=== PATIENT | female | born 1940 | race Caucasian/White ===

== ENCOUNTER 2022-04-01 05:02 | Observation (INO) ==
--- NOTE | 2022-02-21 15:52 | PAT Medication Instructions ---
Medication Instructions Date of Service February 21, 2022 Home Medications amlodipine 5 mg tablet 5 mg PO QAM aspirin 81 mg capsule 81 mg PO QAM atenolol 25 mg tablet 25 mg PO QPM benazepril 40 mg tablet 40 mg PO QAM cholecalciferol (vitamin D3) 50 mcg (2,000 unit) capsule (Vitamin D3) 50 mcg PO QPM citalopram 20 mg tablet 30 mg PO QAM ibuprofen 200 mg tablet 600 mg PO Q8H PRN levothyroxine 75 mcg tablet 75 mcg PO QAM omeprazole 20 mg tablet,delayed release 20 mg PO QAM oxybutynin chloride 10 mg tablet,extended release 24 hr (Ditropan XL) 10 mg PO QAM rosuvastatin 10 mg tablet 10 mg PO QPM ASK your surgeon for instructions ibuprofen 200 mg tablet 600 mg PO Q8H PRN DO NOT take the morning of surgery benazepril 40 mg tablet 40 mg PO QAM oxybutynin chloride 10 mg tablet,extended release 24 hr (Ditropan XL) 10 mg PO QAM Take morning of surgery With a small sip of water, OTHERWISE NOTHING TO EAT OR DRINK AFTER MIDNIGHT: amlodipine 5 mg tablet 5 mg PO QAM aspirin 81 mg capsule 81 mg PO QAM (unless surgeon directed otherwise) citalopram 20 mg tablet 30 mg PO QAM levothyroxine 75 mcg tablet 75 mcg PO QAM omeprazole 20 mg tablet,delayed release 20 mg PO QAM Take evening before surgery atenolol 25 mg tablet 25 mg PO QPM cholecalciferol (vitamin D3) 50 mcg (2,000 unit) capsule (Vitamin D3) 50 mcg PO QPM rosuvastatin 10 mg tablet 10 mg PO QPM Other Notes If you have any questions please call us at [phone] or [phone] or [phone] or [phone]
--- NOTE | 2022-02-27 15:05 | Anesthesiology Consultation ---
Date of Service February 27, 2022 Assessment & Plan (1) Encounter for pre-operative examination: Chart Review Chart Review: Acceptable Risk for Surgery (pending cardio clearance, PCP clearance and lumbar x ray (if records available) ) and Patient NOT seen in Pre Admission Testing -Awaiting cardio clearance (03/01/22) (please fax EKG for cardio review) - Awaiting PCP clearance 03/22/22 -Please fax [facility] for lumbar x ray from 01/2022 per patient request - Hx of significant lumbar spine arthritis and hardware to spine- 2010 right TKA done under [facility] per records (fluid bolus NOT ordered for DOS- will leave to anesthesiologist discretion pending on plan of anesthesia) -Pt is NOT a Same Day Joint candidate secondary to age Per PAT appt on 02/27/22, patient denies any recent travel or large group activities. Pt is vaccinated for Covid. Will leave to surgeon's discretion if preop Covid testing needed. Educated on importance of using Covid precautions one week prior to surgery Teaching & Discussion Pre-Anesthesia Teaching/Discussion Notes: Instructed NPO after midnight before surgery,except medications with 15 cc of water. Medication instructions provided according to the PAT guidelines. History Surgery Operation Date: 04/01/22 07:30 Proposed Procedures p Left Total Knee Arthroplasty - Ariel Acevedo MD Height/Weight Height: 5 ft 5 in Weight: 114.6 kg Allergies Allergy/AdvReac Type Severity Reaction Status Date / Time celecoxib Allergy Intermediate EDEMA Verified 02/21/22 13:08 chlorhexidine Allergy Intermediate Hives Verified 02/21/22 13:29 meloxicam Allergy Intermediate EDEMA Verified 02/21/22 13:08 nitroglycerin Allergy Unknown UNSURE OF Verified 02/21/22 13:08 REACTION promethazine Allergy Unknown UNSURE OF Verified 02/21/22 13:08 REACTION red dye Allergy Unknown UNSURE OF Verified 02/21/22 13:08 REACTION Medications Home Medications Medication Instructions Recorded Confirmed Last Taken amlodipine 5 mg tablet 5 mg PO QAM 02/21/22 02/21/22 Unknown aspirin 81 mg capsule 81 mg PO QAM 02/21/22 02/21/22 Unknown atenolol 25 mg tablet 25 mg PO QPM 02/21/22 02/21/22 Unknown benazepril 40 mg tablet 40 mg PO QAM 02/21/22 02/21/22 Unknown cholecalciferol (vitamin D3) 50 50 mcg PO QPM 02/21/22 02/21/22 Unknown mcg (2,000 unit) capsule (Vitamin D3) citalopram 20 mg tablet 30 mg PO QAM 02/21/22 02/21/22 Unknown ibuprofen 200 mg tablet 600 mg PO Q8H PRN Pain 02/21/22 02/21/22 Unknown levothyroxine 75 mcg tablet 75 mcg PO QAM 02/21/22 02/21/22 Unknown omeprazole 20 mg tablet,delayed 20 mg PO QAM 02/21/22 02/21/22 Unknown release oxybutynin chloride 10 mg 10 mg PO QAM 02/21/22 02/21/22 Unknown tablet,extended release 24 hr (Ditropan XL) rosuvastatin 10 mg tablet 10 mg PO QPM 02/21/22 02/21/22 Unknown Past Medical History Medical History Anxiety Arthritis CAD (coronary artery disease) Stent x1 to mLAD (2008) Follows with Dr. Romero Degenerative disc disease GERD (gastroesophageal reflux disease) Well controlled and stable per patient History of COVID-19 10/2021, symptoms resolved Hyperlipidemia Pt denies On statin for preventative measure for CAD per patient Hypertension Hypothyroidism Overactive bladder Exercise / Class Metabolic Activity IV < 2 Limit ADL/Bedbound (usually in wheelchair or scooter - can transfer herself (lives alone); can only ambulate for few steps due to back/leg issues) Past Family History Family History Other No family history of adverse response to anesthesia Past Surgical History Surgical History History of bilateral tubal ligation History of carpal tunnel release RT/LEFT History of cataract surgery RT/LEFT History of cholecystectomy History of colonoscopy History of esophagogastroduodenoscopy (EGD) History of heart artery stent Stent x1 (2008) History of hysterectomy History of lumbar spinal fusion History of repair of rotator cuff RT History of tooth extraction History of total knee replacement RT S/P Botox injection BLADDER S/P cervical spinal fusion Past Anesthesia History No Hx of Anesthesia Complications and No Family Hx of Anesthesia Complications History of PONV No Hx of PONV and No Hx of Motion Sickness Social History Smoking Status: Never smoker Hx Alcohol Use: Yes alcohol intake frequency: holidays/special occasions only substance use type: does not use Review of Systems Patient denies chest pain, shortness of breath, dyspnea on exertion, cough, wheezing, palpitations. No hx of seizures, stroke, apnea/snoring. No hx of blood clots or blood transfusions Physical Exam Vital Signs VITALS BP 114/73 P 63 TEMP 97.8 SP02 96% RESP 16 Constitutional no acute distress ENMT Mouth: no TMJ clicking Thyromental Distance: > or= 3.5 Finger Breadths (3.5) Mallampati Class: I Full dentures on top and bottom Neck + limited neck extension (significant ) Respiratory normal respiratory effort; no respiratory distress Auscultation: lungs clear to auscultation bilaterally; no wheezes Cardiovascular Rate/Rhythm: regular rate and regular rhythm Heart Sounds: no murmur Vessels: no carotid bruit Heart sounds diminished throughout Musculoskeletal Spine: no pain with cervical ROM Extremities: extremities normal to inspection Psychiatric Orientation: alert Lab Results Anesthesia Preop Results Results Anesthesia Widget: WBC 8.05 K/ul (4.8-10.8) 02/27/22 Hgb 14.0 g/dl (12.0-16.0) 02/27/22 Hct 41.8 % (34.1-44.9) 02/27/22 Plt 265 K/uL (130-400) 02/27/22 Na 139 mmol/L (136-145) 02/27/22 K 3.7 mmol/L (3.5-5.1) 02/27/22 Cl 105 mmol/L (98-107) 02/27/22 CO2 28 mmol/L (21-32) 02/27/22 BUN 20 mg/dl (6-23) 02/27/22 Creat 0.87 mg/dl (0.6-1.2) 02/27/22 Glucose Level 120 mg/dl (70-99(Fasting)) H 02/27/22 PT 11.0 Seconds (9.0-12.0) 02/27/22 PTT 26.0 Seconds (21.0-31.0) 02/27/22 INR 1.0 (0.9-1.1) 02/27/22 Blood Type B Positive 02/27/22 Antibody Screen NEGATIVE 02/27/22 Testing Electrocardiogram Date: 02/27/22 SR with 1st degree AVB at 63bpm Minimal voltage criteria for LVH, may be normal variant Nonspecific T wave abnormality When compared to EKG from July- QT has lengthened per cardio Chest X-Ray Date: 02/27/22 Findings: + NAD Echocardiogram Date: 06/28/20 Grossly normal LV size and systolic function. EF 55-60%. Unable to comment on regional wall motion. RV systolic pressure as measured by Doppler is 45.3 mmHg. No significant valvular disease. COVID-19 Risk Screen Screening Information COVID-19 Screen Date: 02/27/22 Exposure 21 Days Family/Household +COVID Last 21 Days: No Exposure 10 Days Any COVID Exposure Last 10 Days: No Symptoms Last 10 Days Experienced COVID Sx Last 10 Days: No + COVID 0-90 Days COVID + in Last 0-90 Days: No Risk Plan COVID Risk Plan: No Risk Identified Patient Education COVID Preop Screening Education Complete: Yes
[2022-04-01] MEDS ORDERED: dexAMETHasone 4 MG TAB PO SCH (06:00)
[2022-04-01] MEDS ORDERED: ceFAZolin 2000MG 2,000 MG/15 ML SYR IV SCH (06:00)
[2022-04-01] MEDS ORDERED: LR 15ML/HR IV SCH (06:00)
[2022-04-01] MEDS ORDERED: FAMOTIDINE 20 MG TAB PO SCH (06:00)
[2022-04-01] MEDS ORDERED: METOCLOPRAMIDE HCL 10 MG TABLET PO SCH (06:00)
[2022-04-01] MEDS ORDERED: TRANEXAMIC ACID 1,000 MG **IV Pre-op IV SCH (06:00)
[2022-04-01] MEDS ORDERED: ROPIVACAINE 0.5% HCL/PF 150 MG, BUPIVACAINE 0.75% MPF 20 ML, EPINEPHrine 30MG/30ML (OR ... INSTIL SCH (06:00)
[2022-04-01] MEDS ORDERED: ACETAMINOPHEN 500 MG TAB PO SCH (06:00)
[2022-04-01] MEDS ORDERED: ROPIVACAINE 0.5% 5 MG/ML 30 ML VIAL ONE (06:33)
[2022-04-01] MEDS ORDERED: BUPIVACAINE 0.5 % 5 MG/1 ML PF 10ML VIAL ONE (06:33)
[2022-04-01] MEDS ORDERED: PROPOFOL IV EMULSION 10 MG/ML 20 ML VIAL IV ONE ×2 (07:01→07:50)
[2022-04-01] MEDS ORDERED: MIDAZOLAM HCL 1 MG/ML 2ML VIAL ONE (07:01)
[2022-04-01] MEDS ORDERED: fentaNYL citrate 100 MCG/2 ML VIAL ONE ×2 (07:01→09:12)
[2022-04-01] MEDS ORDERED: LIDOCAINE 2% MPF LOCAL 5 ML VIAL INFIL ONE (07:01)
[2022-04-01] MEDS ORDERED: ORTHO JOINT ANESTHETIC ONE (07:13)
--- NOTE | 2022-04-01 07:17 | History & Physical Report ---
Date of Service April 01, 2022 Assessment & Plan (1) Osteoarthritis of left knee: Plan: Left total knee replacement. I have explained the risk benefits and alternatives to her and she has consented to proceed. Plan left total knee replacement at [facility] with overnight stay. History of Present Illness Chief Complaint: Left knee pain Primary Care Provider: Alvarado Ann MD Rita is an 81-year-old woman with left knee osteoarthritis. After the failure of conservative treatment we have decided to proceed with a total knee replacement Allergies Allergy/AdvReac Type Severity Reaction Status Date / Time celecoxib Allergy Intermediate EDEMA Verified 04/01/22 05:36 chlorhexidine Allergy Intermediate Hives Verified 04/01/22 05:36 meloxicam Allergy Intermediate EDEMA Verified 04/01/22 05:36 nitroglycerin Allergy Unknown UNSURE OF Verified 04/01/22 05:36 REACTION promethazine Allergy Unknown UNSURE OF Verified 04/01/22 05:36 REACTION red dye Allergy Unknown UNSURE OF Verified 04/01/22 05:36 REACTION Home Medications Medication Instructions Recorded Confirmed Type amlodipine 5 mg tablet (Norvasc) 5 mg PO QAM 02/21/22 04/01/22 History aspirin 81 mg capsule 81 mg PO QAM 02/21/22 04/01/22 History atenolol 25 mg tablet 25 mg PO QPM 02/21/22 04/01/22 History benazepril 40 mg tablet (Lotensin) 40 mg PO QAM 02/21/22 04/01/22 History cholecalciferol (vitamin D3) 50 50 mcg PO QPM 02/21/22 04/01/22 History mcg (2,000 unit) capsule (Vitamin D3) citalopram 20 mg tablet (Celexa) 30 mg PO QAM 02/21/22 04/01/22 History ibuprofen 200 mg tablet 600 mg PO Q8H PRN Pain 02/21/22 04/01/22 History levothyroxine 75 mcg tablet 75 mcg PO QAM 02/21/22 04/01/22 History omeprazole 20 mg tablet,delayed 20 mg PO QAM 02/21/22 04/01/22 History release oxybutynin chloride 10 mg 10 mg PO QAM 02/21/22 04/01/22 History tablet,extended release 24 hr (Ditropan XL) rosuvastatin 10 mg tablet 10 mg PO QPM 02/21/22 04/01/22 History Past Med/Surg History Medical History Anxiety Arthritis CAD (coronary artery disease) Stent x1 to mLAD (2008) Follows with Dr. Romero Degenerative disc disease GERD (gastroesophageal reflux disease) Well controlled and stable per patient History of COVID-19 10/2021, symptoms resolved Hyperlipidemia Pt denies On statin for preventative measure for CAD per patient Hypertension Hypothyroidism Overactive bladder Surgical History History of bilateral tubal ligation History of carpal tunnel release RT/LEFT History of cataract surgery RT/LEFT History of cholecystectomy History of colonoscopy History of esophagogastroduodenoscopy (EGD) History of heart artery stent Stent x1 (2008) History of hysterectomy History of lumbar spinal fusion History of repair of rotator cuff RT History of tooth extraction History of total knee replacement RT S/P Botox injection BLADDER S/P cervical spinal fusion Family History Other No family history of adverse response to anesthesia Social History Smoking Status: Never smoker Second Hand Exposure: Yes (IN THE PAST); Hx Alcohol Use: Yes Preferred Language: Venezuelan Chorus Dancer Required: No Beliefs That Will Affect Care: Jew Jew Beliefs: MANDAEISM Current Living Situation: Alone Feels Safe at Home: Yes Safety Concerns: Feels Safe At This Time Assistive Devices: Denture - Upper, Denture - Lower, Glasses, Walker and Wheelc hair Assistive Devices Comment: READING GLASSES Physical Exam Constitutional: Well-developed, well-nourished, no acute distress Eyes: Pupils are equal and reactive to light Neck: Supple Respiratory: Clear to auscultation Gastrointestinal (Abdomen): Soft nontender Musculoskeletal: Left knee decreased range of motion tenderness medially and laterally. 2+ pseudovalgus laxity. Skin: Clean dry and intact Neurologic: patellar DTR's 2+ bilat, sensation intact Results & Data Results & Data ([facility]) Vital Signs (Past 12 Hours) Vital Signs Temp Pulse Resp BP Pulse Ox O2 Del Method 04/01/22 05:42 36.7 C 73 20 196/79 H 95 Room Air Diagnostic Findings Left knee x-rays. End-stage osteoarthritis with loss of joint space, osteophyte formation, subchondral sclerosis and cyst formation.
[2022-04-01] MEDS ORDERED: fentaNYL citrate 100 MCG/2 ML VIAL IV PRN (07:18)
[2022-04-01] MEDS ORDERED: ONDANSETRON INJ 2 MG/ML 2 ML VIAL IV PRN ×2 (07:18→09:02)
[2022-04-01] MEDS ORDERED: ePHEDrine sulfate 50 MG/ML AMP IV PRN (07:18)
[2022-04-01] MEDS ORDERED: ATROPINE SULFATE 0.1 MG/ML 10ML SYR IV PRN (07:18)
[2022-04-01] MEDS ORDERED: DEXAMETHASONE SOD INJ 4 MG/ML VIAL ONE (07:49)
[2022-04-01] MEDS ORDERED: ONDANSETRON INJ 2 MG/ML 2 ML VIAL ONE (07:50)
--- NOTE | 2022-04-01 08:56 | Post Operative Brief Note ---
Immediate Post Op Note v1 Date of Surgery April 01, 2022 Pre & Post Diagnosis Operation Date: 04/01/22 07:30 Pre-Op Diagnosis: Left Knee Osteoarthritis Post-Op Diagnosis: Left Knee Osteoarthritis I identified the patient and participated in the time-out.: Yes Procedure Operation Date: 04/01/22 07:30 Actual Procedures p Left Total Knee Arthroplasty(Left) - Ariel Acevedo MD Surgeon Ariel Acevedo MD Friction Saw Operator Augusta Joseph PA-C Estimated Blood Loss 5 Findings Consistent with Post-Op Diagnosis Tricompartment osteoarthritis left knee Anesthesia Type General Regional
--- NOTE | 2022-04-01 08:58 | Operative Report ---
Post Operative Report Pre & Post Diagnosis Operation Date: 04/01/22 07:30 Pre-Op Diagnosis: Left Knee Osteoarthritis Post-Op Diagnosis: Left Knee Osteoarthritis I identified the patient and participated in the time-out.: Yes Procedure Operation Date: 04/01/22 07:30 Actual Procedures p Left Total Knee Arthroplasty(Left) - Ariel Acevedo MD Surgeon Ariel Acevedo MD Cargo Checker Augusta Josehp PA-C Estimated Blood Loss 5 Findings Consistent with Post-Op Diagnosis Left knee osteoarthritis Specimens Bone and cartilage left knee Drains No drains Complications None Indications Rita is an 81-year-old woman with left knee osteoarthritis. After the failure of conservative treatment I recommended proceeding with a left total knee replacement. Description of Procedure Implants: Mikayla triathlon cemented cruciate retaining total knee replacement. Femur size 4. Tibia size 4. Polyethylene size 4 x 9 mm cruciate stabilized. Patella size 36 mm symmetrical. Procedure: The patient was taken to the operating room and after verifying their identity and confirming the operative side spinal anesthesia and a regional block was administered. A nonsterile tourniquet was placed on the operative leg and the operative leg was sterilely prepped and draped in usual fashion. After exsanguinating the leg and inflating the tourniquet a 6 inch incision was made over the patella and carried sharply through subcutaneous tissue. A medial parapatellar arthrotomy was performed, the patella was everted, and planed to a thickness of 14 mm. The appropriate size patella was trialed and the drill holes were completed. The knee was flexed and the femur cleaned of soft tissue. The femoral intramedullary guide was utilized to take a 5 valgus cut 10 mm total resection. The distal femur cut was completed. The cutting guide was removed. The AP sizing guide was placed in the correct size determined. The appropriately sized sized 4 in 1 cutting guide was placed and its position confirmed with the epicondyle axis and anterior cortex. The cuts were completed. The tibia was subluxed forward and the extra medullary tibial guide was placed and pinned in place. A 2 mm resection was measured on the medial tibial plateau perpendicular to the long axis of the tibia. The proximal tibia was cut. The guide was removed. A lamina heating and refrigeration inspector was placed with the knee in 90 of flexion in the remaining meniscus and posterior soft tissue were removed. The PCL was preserved. 20 cc of local injection was utilized in the posterior capsule and soft tissues. The knee was balanced in flexion and extension utilizing the gap group director. The tibia was subluxed forward and the appropriately sized trial was placed and pinned in place. The femoral trial was placed and the appropriate size poly-was utilized to achieve full extension, full flexion and good stability to varus and valgus stress. Trial components were all removed. The knee was thoroughly irrigated with pulse lavage, bacteriocidal wash, and a repeat pulse lavage. 20 cc of local injection was utilized in the medial tissues and 20 cc in the lateral tissues. Antibiotic cement was mixed using vacuum technique in the tibial and femoral components were cemented in place. The poly-was inserted and the knee held in full extension while the cement hardened. The patella was cemented and clamped. Excess cement was carefully removed. After the cement hardened range of motion was once again assessed and noted to be full including full extension and good stability to varus and valgus stress with central patellar tracking. The knee was irrigated with pulse lavage, a bacteriocidal wash, and a repeat pulse lavage. 20 cc of local was used in the anterior subcutaneous tissues. The arthrotomy was closed with #1 Ethibond, the remaining incision with 2-0 Vicryl and alex. A silver dressing was applied and a compression wrap. The patient tolerated the procedure well and there were no intraoperative complications. Augusta Joseph PA-C assisted in all aspects of the procedure including patient positioning, prepping and draping, manipulation of surgical instruments and retractors, wound closure, dressing placement, and compression wrap placement. I attest to the content of the Intraoperative Record and any orders documented therein. Any exceptions are noted below.
[2022-04-01] MEDS ORDERED: amLODIPine BESYLATE 5 MG TAB PO SCH (09:00)
[2022-04-01] MEDS ORDERED: NALOXONE HCL 0.4 MG/1 ML VIAL/CARP IV PRN (09:02)
[2022-04-01] MEDS ORDERED: MAGNESIUM HYDROXIDE SUSP 30 ML UDC PO PRN (09:02)
[2022-04-01] MEDS ORDERED: METOCLOPRAMIDE HCL INJ 5 MG/ML 2 ML VIAL IV PRN (09:02)
[2022-04-01] MEDS ORDERED: bisacodyL 10 MG SUPP PR PRN (09:02)
[2022-04-01] MEDS ORDERED: SODIUM CHLORIDE 0.9% 1000ML 1,000 ML IV SCH (09:15)
--- NOTE | 2022-04-01 09:49 | Anesthesiology Progress Note ---
Date of Service April 01, 2022 Anesthesia Post Procedure Vital Signs Vital Signs: Temp Pulse Resp BP Pulse Ox O2 Del Method O2 Flow Rate 04/01/22 09:45 83 14 146/73 H 94 Nasal Cannula 2 04/01/22 09:35 79 15 137/84 93 Oxymask 2 04/01/22 09:28 97.7 F 82 19 158/77 H 95 Oxymask 2 04/01/22 05:42 98.1 F 73 20 196/79 H 95 Room Air Transfer of Care Handoff Completed per policy Notes Mental Status: alert / awake / arousable and participated in evaluation Patient Amnestic to Procedure: Yes Nausea / Vomiting: adequately controlled Pain: adequately controlled Airway Patency, RR, SpO2: stable & adequate BP & HR: stable & adequate Hydration State: stable & adequate Anesthetic Complications: no major complications apparent and Pt Satisfied with anesthetic care
[2022-04-01] MEDS ORDERED: PANTOprazole 40 MG TAB PO SCH (10:30)
[2022-04-01] MEDS ORDERED: ENALAPRIL MALEATE 10 MG TAB PO SCH (10:30)
--- NOTE | 2022-04-01 10:31 | Hospitalist Consultation ---
Date of Consultation April 01, 2022 Assessment & Plan (1) Osteoarthritis of left knee: s/p Left Total Knee Arthroplasty(Left) - Ariel Acevedo MD. EBL 5cc Pain control/bowel regimen per primary service Ancef ordered for abx Tranexamic acid ordered by primary service Given decadron 8mg PO pre-op Holding enalapril as ordered for today by primary service for today and can resume in AM if BP w/o hypotension and kidney function stable DVT prophylaxis: -Does have SCDs/chris hose in place in meantime -Messaged orthopedic service to see about DVT prophylaxis as none currently ordered PT/OT consulted post-op -- per patient/daughter planning for dc tomorrow w/ OPPT (2) CAD (coronary artery disease): follows with Dr Romero, stent x 1 to mLAD 2008 Last ECHO in system 2020, grossly normal LV size/systolic function. Unable to comment on regional wma, RV systolic pressure 45.3 - ? underlying ENRICO On aspirin 81mg, atenolol 25mg, benazepril 40mg, rosuvastatin 10mg daily --Assuming ASA 81mg BID for DVT prophylaxis, however did message ortho as above, no ASA ordered (3) Hypertension: typically on atenolol 25mg daily, amlodipine 5mg, benazapril 40mg daily --states she took everything this AM except 1 cardiac medication -- all ordered to start today --discussed w/ nursing and to NOT give cardiac meds until tomorrow (exception atenolol for tonight), will continue w/ benazepril on hold until BP/Cr assessed on AM labs BP 151/77 post-op Monitor (4) Hyperlipidemia: continue crestor daily (5) Hypothyroidism: Per PCP note, TSH elevated 4.15 on pre-op labs Remains on levothyroxine 75mcg daily however was taking it w/ her pepcid in AM and now taking 4 hours later around noon can adjust timing for synthroid or just have take early while in the hospital before her pepcid but given fatigue/etc symptoms rec'd to have sooner f/u TFT repeated 6-8 weeks rather than in 6 months as told by primary care provider pre- op to ensure no adjustments needed Continue usual home dose for now (6) GERD (gastroesophageal reflux disease): and hx barretts apparently? -- denies knowing hx of this confirmed on omeprazole but only once daily -- will increase PPI to BID while inpatient on steroids/NSAIDs (getting toradol) Ibuprofen on home med list, would be cautious about use/bleeding (7) Overactive bladder: continue oxybutynin 10mg Plan Thank you for allowing hospitalist service to participate in the care of Ms Rice. Hospitalist service will follow along. Please call with any questions/concerns. Supervising Physician Co-Signing Physician Notes PA Supervision Note: I personally saw and examined the patient. I verified all song points and agree with PEPE Mirza with the following exceptions and/or additions: S-Pt gila miguel post op. Had some knee pain now better with pain meds. No CP, SOB, nausea, abd pain, Is eating. History and ROS reviewed O- Vitals reviewed Gen: [AAOx3, NAD] HEENT: [anicteric sclerae, EOMI] CV: [RRR no mgr nl S1S2] Pulm: [CTAB no wcr] Abd: [+BS soft NT ND no masses or hernias] Ext: [LLE with dressing over knee in place] Skin: [no rashes, warm/dry] A/P-81 yo female with history as above, here for TKA on left. Doing well post op -start ASA 81mg po bid for CAD with h/o stents and for DVT prophylaxis Plan otherwise outlined as above History of Present Illness Reason for Consultation: med management Requesting Physician: Dr Acevedo Attending Physician: Ariel Acevedo MD History of Present Illness 81yo female with PMHx significant for CAD, HTN, HLD, GERD, Squires's esophagus, overactive bladder, vit D deficiency, sciatica, prior knee replacement w/o complications presented for elective TKA with Dr Acevedo. Patient evaluated in room 308 post-op, doing well, having some pain in her knee and nursing getting her a dose of toradol. On supplemental O2 and weaning off. Confirms she sees Dr Romero, medications verified. Stent placed in 2008. Has been stable. States she took all cardiac meds this morning except one BP med (assuming benazepril, she states this sounds familiar) -- was ordered equivalent inpatient and discussed holding this until AM to ensure BP/kidney function stable. She states her TSH was elevated and she saw primary care but she had been taking w/ her AM reflux medication and now she takes this 4 hours after and seems to be doing better. She states they wanted to f/u on labs in 6 months but did endorse decent fatigue but that she was told slightly elevated ok in elderly patients. Discussed would repeat in 4-6 weeks given already on replacement to ensure normalized. No fever, chills, chest pain, shortness of breath, abdominal pain, nausea or vomiting at this time. Per daughter in room and patient, they plan on dc tomorrow w/ OPPT. Questions/concerns addressed at this time. Allergies Allergy/AdvReac Type Severity Reaction Status Date / Time celecoxib Allergy Intermediate EDEMA Verified 04/01/22 05:36 chlorhexidine Allergy Intermediate Hives Verified 04/01/22 05:36 meloxicam Allergy Intermediate EDEMA Verified 04/01/22 05:36 nitroglycerin Allergy Unknown UNSURE OF Verified 04/01/22 05:36 REACTION promethazine Allergy Unknown UNSURE OF Verified 04/01/22 05:36 REACTION red dye Allergy Unknown UNSURE OF Verified 04/01/22 05:36 REACTION Home Medications Medication Instructions Recorded Confirmed Type amlodipine 5 mg tablet (Norvasc) 5 mg PO QAM 02/21/22 04/01/22 History aspirin 81 mg capsule 81 mg PO QAM 02/21/22 04/01/22 History atenolol 25 mg tablet 25 mg PO QPM 02/21/22 04/01/22 History benazepril 40 mg tablet (Lotensin) 40 mg PO QAM 02/21/22 04/01/22 History cholecalciferol (vitamin D3) 50 50 mcg PO QPM 02/21/22 04/01/22 History mcg (2,000 unit) capsule (Vitamin D3) citalopram 20 mg tablet (Celexa) 30 mg PO QAM 02/21/22 04/01/22 History ibuprofen 200 mg tablet 600 mg PO Q8H PRN Pain 02/21/22 04/01/22 History levothyroxine 75 mcg tablet 75 mcg PO QAM 02/21/22 04/01/22 History omeprazole 20 mg tablet,delayed 20 mg PO QAM 02/21/22 04/01/22 History release oxybutynin chloride 10 mg 10 mg PO QAM 01/05/23 02/13/23 History tablet,extended release 24 hr (Ditropan XL) rosuvastatin 10 mg tablet 10 mg PO QPM 02/21/22 04/01/22 History Patient History Medical History Anxiety Arthritis CAD (coronary artery disease) Stent x1 to mLAD (2008) Follows with Dr. Romero Degenerative disc disease GERD (gastroesophageal reflux disease) Well controlled and stable per patient History of COVID-19 10/2021, symptoms resolved Hyperlipidemia Pt denies On statin for preventative measure for CAD per patient Hypertension Hypothyroidism Overactive bladder Surgical History History of bilateral tubal ligation History of carpal tunnel release RT/LEFT History of cataract surgery RT/LEFT History of cholecystectomy History of colonoscopy History of esophagogastroduodenoscopy (EGD) History of heart artery stent Stent x1 (2008) History of hysterectomy History of lumbar spinal fusion History of repair of rotator cuff RT History of tooth extraction History of total knee replacement RT S/P Botox injection BLADDER S/P cervical spinal fusion Family History Other No family history of adverse response to anesthesia Social History Smoking Status: Never smoker Second Hand Exposure: Yes (IN THE PAST); Hx Alcohol Use: Yes Preferred Language: [employer] Required: No Beliefs That Will Affect Care: Sikhism Sikhism Beliefs: RASTAFARIAN Current Living Situation: Alone Feels Safe at Home: Yes Safety Concerns: Feels Safe At This Time Assistive Devices: Denture - Upper, Denture - Lower, Glasses, Walker and Wheelchair Assistive Devices Comment: READING GLASSES Review of Systems Review of Systems: All systems reviewed & are unremarkable except as noted in HPI & below Physical Exam Physical Exam: General: WD/WN obese female sitting up in bed, daughter at bedside, NAD but reporting pain and RN getting medication HEENT: head normocephalic, atraumatic, mm slightly dry, trachea midline Resp: CTA, diminished in bases, no w/c, on 2L NC post-op, no distress CV: regular rate/rhythm, no significant m/r/g, pulses palpable, cap refill wnl GI: +BS, soft/NT MSK/Neuro: dressing/mazin wrap to RLE intact, ice pack in place, toes mobile, dorsiflexion/plantar flexion intact, pulses palpable Psych: AOx3, pleasant and cooperative Results & Data Results & Data ([facility]) Vital Signs (Past 12 Hours) Vital Signs Temp Pulse Resp BP Pulse Ox O2 Del Method O2 Flow Rate 04/01/22 09:55 36.5 C 79 18 143/71 H 93 Nasal Cannula 2 04/01/22 09:45 83 14 146/73 H 94 Nasal Cannula 2 04/01/22 09:35 79 15 137/84 93 Oxymask 2 04/01/22 09:28 36.5 C 82 19 158/77 H 95 Oxymask 2 04/01/22 05:42 36.7 C 73 20 196/79 H 95 Room Air Laboratory Results 04/01/22 Range/Units Unknown SARS-CoV-2, RNA, NAAT NEGATIVE (NEGATIVE) PG Care Time/CCT Total # of Minutes Spent Total Time Spent with Patient: Total time spent is greater than 50% in coordination of care (as documented) at patient's floor/unit and/or counseling patient: Coding Level of Care Code INP/OBS CONSULT LVL 3, 45 MIN Diagnoses Osteoarthritis of left knee M17.12 CAD (coronary artery disease) I25.10 Hypertension I10 Hyperlipidemia E78.5 Hypothyroidism E03.9 GERD (gastroesophageal reflux disease) K21.9 Overactive bladder N32.81
[2022-04-01] MEDS: ALLERGY Noted to ORDERED Medication SCH ×4 (10:33→15:17)
[2022-04-01] MEDS: KETOROLAC TROMETHAMINE 15 MG/ML VIAL IV SCH ×3 (10:55→21:17)
[2022-04-01] MEDS: CITALOPRAM 20 MG TAB PO SCH (10:55)
[2022-04-01] MEDS: LEVOTHYROXINE SODIUM 75 MCG TABLET PO SCH (10:56)
[2022-04-01] MEDS: PANTOprazole 40 MG TAB PO SCH ×2 (10:59→21:16)
[2022-04-01] MEDS: oxyCODONE HCL IR 5 MG TAB (IMMEDIATE RELEASE) PO PRN (11:14)
[2022-04-01] MEDS: OXYBUTYNIN CHLORIDE XL 5 MG TABCR PO SCH (11:15)
[2022-04-01] MEDS: ACETAMINOPHEN 500 MG TAB PO SCH ×2 (14:10→21:19)
[2022-04-01] MEDS: ceFAZolin 2000MG 2,000 MG/15 ML SYR IV SCH ×2 (15:17→22:53)
[2022-04-01] MEDS ORDERED: ATENOLOL 25 MG TABLET PO SCH (21:00)
[2022-04-01] MEDS ORDERED: SENNA 8.6 MG TAB PO SCH (21:00)
[2022-04-01] MEDS ORDERED: ROSUVASTATIN CALCIUM 10 MG TAB PO SCH (21:00)
[2022-04-01] MEDS: DOCUSATE SODIUM 100 MG CAP PO SCH (21:16)
[2022-04-01] MEDS: ASPIRIN 81 MG ECTAB PO SCH (21:16)
[2022-04-02] MEDS: KETOROLAC TROMETHAMINE 15 MG/ML VIAL IV SCH (03:15)
[2022-04-02] MEDS: oxyCODONE HCL IR 5 MG TAB (IMMEDIATE RELEASE) PO PRN ×2 (06:35→11:04)
[2022-04-02] MEDS: ACETAMINOPHEN 500 MG TAB PO SCH (06:35)
[2022-04-02] MEDS: LEVOTHYROXINE SODIUM 75 MCG TABLET PO SCH (06:35)
[2022-04-02 06:38] LABS: Hematocrit (blood only) 32.5 % (37.0-47.0); Hemoglobin 11.2 g/dl (12.0-16.0); Mean Corpuscular Hemoglobin 30.4 pg (25.0-34.0); Mean Corpuscular Hgb Conc 34.5 g/dL (32.0-36.0); Mean Corpuscular Volume 88.3 fL (80.0-100.0); Mean Platelet Volume 10.1 fL (9.4-12.4); Platelet Count 244 K/uL (130-400); RDW Coefficient of Variation 12.9 % (11.5-14.5); RDW Standard Deviation 41.6 fL (36.4-46.3); Red Blood Count 3.68 M/uL (4.20-5.40); White Blood Count 12.93 K/ul (4.8-10.8)
[2022-04-02 06:43] LABS: BUN Creatinine Ratio 25.2 (10-20); Calcium 8.4 mg/dl (8.5-10.1); Creatinine Clr Calc Pharmacy 54.7 ml/min; Est GFR (African American) 59.5 ml/min; Est GFR (Non-African American) 51.3 ml/min; Magnesium 1.7 mg/dl (1.7-2.4); Potassium 4.1 mmol/L (3.5-5.1)
[2022-04-02] MEDS: ALLERGY Noted to ORDERED Medication SCH ×2 (07:00)
[2022-04-02] MEDS: CITALOPRAM 20 MG TAB PO SCH (07:41)
[2022-04-02] MEDS: ASPIRIN 81 MG ECTAB PO SCH (07:41)
[2022-04-02] MEDS: PANTOprazole 40 MG TAB PO SCH (07:42)
[2022-04-02] MEDS: OXYBUTYNIN CHLORIDE XL 5 MG TABCR PO SCH (07:42)
[2022-04-02] MEDS: DOCUSATE SODIUM 100 MG CAP PO SCH (07:43)
--- NOTE | 2022-04-02 07:54 | Hospitalist Progress Note ---
Date of Service April 02, 2022 Assessment & Plan (1) Osteoarthritis of left knee: Plan: POD# 1 s/p Left Total Knee Arthroplasty(Left) - Ariel Acevedo MD. EBL 5cc WBC elevation likely from steroids given pre-op (decadron 8mg) Hgb 14.0 --> 11.2, acute blood loss from surgery (however EBL only listed at 5cc), did receive 1.9IV fluid theodora/post operatively and suspect degree of dilutional effect. Did get 4 doses of toradol 15mg IV as well (PPI increased to BID for GI proph) Pain control/bowel regimen DVT prophylaxis: SCDS, chris zuniga in place. Messaged ortho and they stated to be on ASA 81mg BID not ordered but added for last night for DVT prophylaxis PT/OT consults pending but has not yet seen patient. Planning for d/c later today (2) CAD (coronary artery disease): Plan: follows with Dr Romero, stent x 1 to mLAD 2008 Last ECHO in system 2020, grossly normal LV size/systolic function. Unable to comment on regional wma, RV systolic pressure 45.3 - ? underlying ENRICO On aspirin 81mg (BID for DVT proph), atenolol 25mg, benazepril 40mg, rosuvastatin 10mg daily (3) Hypertension: Plan: typically on atenolol 25mg daily, amlodipine 5mg, benazepril 40mg daily Took all meds AM surgery except benazepril, on hold post-op, Cr stable 1.03 and can resume today if no issues BP 159/72 -- no lightheadedness/dizziness/cp/sob, resumed benazepril for today (4) Hyperlipidemia: Plan: continue crestor daily (5) Hypothyroidism: Plan: Per PCP note, TSH elevated 4.15 on pre-op labs Remains on levothyroxine 75mcg daily however was taking it w/ her pepcid in AM and now taking 4 hours later around noon WOULD HAVE REPEAT TFT SOONER -- 4-6 weeks to ensure normalized and no adjustment needed now that taking correctly Continue usual home dose for now and f/u PCP outpatient (6) GERD (gastroesophageal reflux disease): Plan: and hx barretts apparently? -- denies knowing hx of this confirmed on omeprazole but only once daily -- increases PPI to BID while inpatient on steroids/NSAIDs inpatient, can continue usual medications at discharge Ibuprofen on home med list, would be cautious about use/bleeding (got 4 doses toradol) (7) Overactive bladder: Plan: continue oxybutynin 10mg Plan Thank you for allowing hospitalist service to participate in the care of Ms Rice. Hospitalist service will sign off. Please call with any questions/concerns Admission and Anticipated Discharge Date Admission Date: April 01, 2022 Supervising Physician Co-Signing Physician Notes PA Supervision Note: I did NOT personally see or examine this patient. I verified all song points and agree with PEPE Mirza with the following exceptions and/or additions: none Subjective eval this morning, up in chair, doing well. pain controlled with ordered medications. seen by orthopedic PA this morning but not the doctor. Not yet seen therapy for evals but has been working on leg exercises as print outs on bedside table. She is anxious to get d/c today. No lightheadedness/chest pain, shortness of breath, fever, chills, abdominal pain, nausea or vomiting. Physical Exam Physical Exam: General: WD/WN obese female sitting up in bed, daughter at bedside, NAD but reporting pain and RN getting medication HEENT: head normocephalic, atraumatic, mm slightly dry, trachea midline Resp: CTA, diminished in bases, but no w/c, on ROOM AIR CV: regular rate/rhythm, no significant m/r/g, pulses palpable, cap refill wnl GI: +BS, soft/NT MSK/Neuro: dressing/mazin wrap to RLE intact, toes mobile, dorsiflexion/plantar flexion intact, pulses palpable, calves nontender Psych: AOx3, pleasant and cooperative Results & Data Results & Data ([facility]) Vital Signs (Past 12 Hours) Vital Signs Temp Pulse Resp BP Pulse Ox O2 Del Method 04/02/22 07:34 36.4 C L 78 16 159/72 H 94 Room Air 04/02/22 02:34 36.7 C 83 16 154/77 H 94 Room Air 04/01/22 22:48 36.5 C 81 16 116/72 94 Room Air Laboratory Results 04/02/22 04/02/22 Range/Units 06:00 06:00 WBC 12.93 H (4.8-10.8) K/ul RBC 3.68 L (4.20-5.40) M/uL Hgb 11.2 L (12.0-16.0) g/dl Hct 32.5 L (37.0-47.0) % MCV 88.3 (80.0-100.0) fL MCH 30.4 (25.0-34.0) pg MCHC 34.5 (32.0-36.0) g/dL RDW Std Deviation 41.6 (36.4-46.3) fL RDW Coeff of Jennifer 12.9 (11.5-14.5) % Plt Count 244 (130-400) K/uL MPV 10.1 (9.4-12.4) fL Sodium 138 (136-145) mmol/L Potassium 4.1 (3.5-5.1) mmol/L Chloride 107 (98-107) mmol/L Carbon Dioxide 24 (21-32) mmol/L Anion Gap 7 (3-11) BUN 26 H (6-23) mg/dl Creatinine 1.03 (0.6-1.2) mg/dl Est Cr Clr Drug Dosing 54.7 ml/min Est GFR ( Amer) 59.5 ml/min Est GFR (Non-Af Amer) 51.3 ml/min BUN/Creatinine Ratio 25.2 H (10-20) Glucose 129 H (70-99(Fasting)) mg/dl Calcium 8.4 L (8.5-10.1) mg/dl Magnesium 1.7 (1.7-2.4) mg/dl PG Care Time/CCT Total # of Minutes Spent Total Time Spent with Patient: Total time spent is greater than 50% in coordination of care (as documented) at patient's floor/unit and/or counseling patient: Coding Level of Care Code 71132 SUB INP/OBS CARE 2/35MIN Diagnoses Osteoarthritis of left knee M17.12 CAD (coronary artery disease) I25.10 Hypertension I10 Hyperlipidemia E78.5 Hypothyroidism E03.9 GERD (gastroesophageal reflux disease) K21.9 Overactive bladder N32.81
--- NOTE | 2022-04-02 08:15 | Orthopedic Progress Note ---
Date of Service April 02, 2022 Assessment & Plan (1) History of total left knee replacement: Plan: POD #1 s/p left TKA pt/ot dvt proph with EWA/SCD/ASA plan for d/c home with HHPT, patient ready for d/c today after PT Admission and Anticipated Discharge Date Admission Date: April 01, 2022 Subjective POD #1 s/p Left TKA Review of Systems Constitutional: no fever, no chills and no sweats Respiratory: no cough and no dyspnea Cardiovascular: no chest pain and no dyspnea Gastrointestinal: no abdominal pain, no nausea and no vomiting Physical Exam Physical Exam: Vital Signs Temp 36.4 C L 04/02/22 07:34 Pulse 78 04/02/22 07:34 Resp 16 04/02/22 07:34 BP 159/72 H 04/02/22 07:34 Pulse Ox 94 04/02/22 07:34 O2 Del Method Room Air 04/02/22 07:34 O2 Flow Rate 1 04/01/22 14:11 Intake & Output 04/01/22 04/02/22 04/02/22 18:59 06:59 18:59 Intake Total 1928.333 / 1928.33 3 Output Total 5 / 5 Balance 1923.333 / 1923.33 3 Weight 113.5 kg Intake: IV 928.333 / 928.333 Lactated Ringe r's 1,000 ml @ 15 0 / 0 mls/hr IV .Q24 H [facility] Rx#: [id number] Sodium Chlorid e 0.9% 1000ML 1, 828.333 / 828.333 000 ml @ 100 m ls/hr IV .Q10H [facility] Rx#:[id number] Tranexamic Aci d / 0.7% NaCl 1, 100 / 100 000 mg In 100 ml @ 600 mls/hr IV TODAY@0600 [facility] Rx#:[id number] IV Perioperative 1000 / 1000 Output: Estimated Blood Loss 5 / 5 Other: # Unmeasured Voi ds 2 1 Musculoskeletal: Left Leg: NVDI, calf SNT, negative jim sign. DP palpable, able to wiggle toes/ankle movement without difficulty. dressing clean dry and intact. Results & Data ([facility]) Vital Signs (Past 12 Hours) Vital Signs Temp Pulse Resp BP Pulse Ox O2 Del Method 04/02/22 07:34 36.4 C L 78 16 159/72 H 94 Room Air 04/02/22 02:34 36.7 C 83 16 154/77 H 94 Room Air 04/01/22 22:48 36.5 C 81 16 116/72 94 Room Air Laboratory Results Laboratory Results WBC 12.93 K/ul (4.8-10.8) H 04/02/22 06:00 RBC 3.68 M/uL (4.20-5.40) L 04/02/22 06:00 Hgb 11.2 g/dl (12.0-16.0) L 04/02/22 06:00 Hct 32.5 % (37.0-47.0) L 04/02/22 06:00 MCV 88.3 fL (80.0-100.0) 04/02/22 06:00 MCH 30.4 pg (25.0-34.0) 04/02/22 06:00 MCHC 34.5 g/dL (32.0-36.0) 04/02/22 06:00 RDW Std Deviation 41.6 fL (36.4-46.3) 04/02/22 06:00 RDW Coeff of Jennifer 12.9 % (11.5-14.5) 04/02/22 06:00 Plt Count 244 K/uL (130-400) 04/02/22 06:00 MPV 10.1 fL (9.4-12.4) 04/02/22 06:00 Sodium 138 mmol/L (136-145) 04/02/22 06:00 Potassium 4.1 mmol/L (3.5-5.1) 04/02/22 06:00 Chloride 107 mmol/L (98-107) 04/02/22 06:00 Carbon Dioxide 24 mmol/L (21-32) 04/02/22 06:00 Anion Gap 7 (3-11) 04/02/22 06:00 BUN 26 mg/dl (6-23) H 04/02/22 06:00 Creatinine 1.03 mg/dl (0.6-1.2) 04/02/22 06:00 Est Cr Clr Drug Dosing 54.7 ml/min 04/02/22 06:00 Est GFR ( Amer) 59.5 ml/min 04/02/22 06:00 Est GFR (Non-Af Amer) 51.3 ml/min 04/02/22 06:00 BUN/Creatinine Ratio 25.2 (10-20) H 04/02/22 06:00 Glucose 129 mg/dl (70-99(Fasting)) H 04/02/22 06:00 Calcium 8.4 mg/dl (8.5-10.1) L 04/02/22 06:00 Magnesium 1.7 mg/dl (1.7-2.4) 04/02/22 06:00 SARS-CoV-2, RNA, NAAT NEGATIVE (NEGATIVE) 04/01/22 Unknown
[2022-04-02] MEDS ORDERED: amLODIPine BESYLATE 5 MG TAB PO SCH (09:00)
[2022-04-02] MEDS ORDERED: MULTIVITAMIN TAB PO SCH (09:00)
== END 2022-04-02 12:27 | disposition home health service (06) ==
LOC: ASU 05:02 → 3E 05:02